=== PATIENT | female | born 1945 | race Caucasian/White ===

== ENCOUNTER → 2021-03-22 | Outpatient (CLI) | payer OTHER ==
[~2021-03-22] MED LIST: BUSPIRONE HCL15 MG PO; LIPITOR 10 MG10 M1 PO; OMEPRAZOLE 20 M20 M1 PO
== END ==
LOC: LAB 07:28
PROVIDERS: ATTEND Student in an Organized Health Care Education/Training Program
DX: Z01.812 Encounter for preprocedural laboratory examination (principal); Z20.822 Contact with and (suspected) exposure to COVID-19

== ENCOUNTER → 2021-03-24 | Outpatient (CLI) | payer OTHER ==
[~2021-03-24] VITALS: Ht 157.5 cm; Wt 72.1 kg
--- NOTE | 2021-03-24 16:10 | P ---
[facility] [place] [address] [place] [address] PROCEDURE REPORT Name: LORRAINE MARTIN Room #: REG LEBRON David#: [id number] Admission: 03/24/21 Attend Phys: Uriah Skinner Discharge: Date of : 49 Report #: [id number] THIS REPORT FOR: cc: GLORIA KING Physician not on staff Uriah Lea MD ~ DATE OF SERVICE: 03/24/2021 PROCEDURE PERFORMED: Upper endoscopy with biopsies. HISTORY OF PRESENT ILLNESS: The patient is a 75-year-old female with a history of gastroesophageal reflux disease and Avila's esophagus. Last upper endoscopy was approximately 5 years ago. She denies any heartburn or dysphagia. Plan is for EGD and colonoscopy today. She is on daily PPI therapy. DESCRIPTION OF PROCEDURE: The risks and benefits of the procedure were explained to the patient, those risks including but not limited to bleeding, perforation and the risk of sedation. She understood these risks and gave informed consent. Sedation was given using propofol per anesthesia. Next, using a standard Olympus upper endoscope, the scope was placed in the patient's mouth and advanced under direct vision through the esophagus, stomach and into the second portion of the duodenum. The larynx was normal in appearance. The upper and mid esophagus were normal. In the distal esophagus, a short 4 cm segment Avila's was noted. No evidence of esophagitis. Random biopsies were obtained of the Avila's esophagus. Upon entering the stomach, a small hiatal hernia was noted. In the stomach, multiple gastric polyps were noted. Several biopsies were obtained. The pylorus was normal and patent. The duodenal bulb, first and second portion were all normal. The scope was then withdrawn and the procedure terminated. The patient tolerated the procedure well. IMPRESSION: 1. Short segment Avila's esophagus. 2. Small hiatal hernia. 3. Gastric polyps. RECOMMENDATIONS: 1. Await biopsy results. 2. Continue daily PPI therapy. 3. We will proceed with colonoscopy next today. Thank you for allowing me to participate in her care. <ELECTRONICALLY SIGNED> By: Uriah Lea MD 03/24/21 1610 [id number] 1408 Uriah Lea MD /nt
--- NOTE | 2021-03-25 16:41 | P ---
[facility] [place] [address] PROCEDURE REPORT Name: LORRAINE MARTIN Room #: REG [place]OR[place] Daniel.#: [id number] Admission: 03/24/21 Attend Phys: Uriah Skinner Discharge: Date of : 49 Report #: [id number] THIS REPORT FOR: cc: GLORIA KING Physician not on staff Uriah Lea MD ~ cc: Gloria King M.D. DATE OF SERVICE: 03/24/2021 PROCEDURE PERFORMED: Colonoscopy with biopsies. HISTORY OF PRESENT ILLNESS: The patient is a 75-year-old female with a history of colon polyps, last colonoscopy 5 years ago. She denies any symptoms. She does have a family history of colon cancer in her father. DESCRIPTION OF PROCEDURE: The risks and benefits of the procedure were explained to the patient, those risks including but not limited to bleeding, perforation and the risk of sedation. She understood these risks and gave informed consent. Sedation was given using propofol per anesthesia. Next, a digital rectal exam was initially performed, which was normal. Next, using a standard Olympus colonoscope, the scope was placed in the patient's anus and advanced under direct vision to the cecum. The overall prep was good. The cecum and ileocecal valve were normal in appearance. The ascending colon was normal. In the transverse colon, a 4 mm sessile polyp was noted. This was removed with cold forceps, otherwise normal. The descending colon was normal. Multiple diverticula were noted in the sigmoid colon. No evidence of inflammation, otherwise normal. The rectal mucosa was normal. On retroflexion, no abnormalities were seen. The scope was then withdrawn and the procedure terminated. The patient tolerated the procedure well. IMPRESSION: 1. Small colonic polyp. 2. Sigmoid diverticulosis. 3. Otherwise, normal colonoscopy. RECOMMENDATIONS: 1. Await biopsy results. 2. Repeat colonoscopy in 5 years. Thank you for allowing me to participate in her care. <ELECTRONICALLY SIGNED> By: Uriah Lea MD 03/25/21 1641 1029 1838 Uriah Lea MD /nt
--- NOTE | 2021-03-26 16:06 | PATH ---
[facility] [address] [place] [address] PATHOLOGY RPT PROCEDURE Name: MARIOCAMI Room #: REG LEBRON [place].Sarah.#: [id number] Admission: 03/24/21 Date of : 49 Discharge: Report #: [id number] Path Case #: [id number] [facility] Accession Number: [id number] . 01 Material submitted: . PART A: gastrointestinal site - GASTRIC POLYPS BIOSPY PART B: esophagus - DISTAL ESOPHAGUS BIOPSY. Modifiers: distal PART C: colon - TRANSVERSE COLON POLYP. Modifiers: transverse . 01 Clinical history: . ESOPHAGOGASTRODUODENOSCOPY/COLONOSCOPY HX OF BIRD'S ESOPHAGUS, FM HX COLON CA, HX OF POLYPS HIATAL HERNIA, DIVERTICULOSIS . 02 Diagnosis: A. Polyps, gastric polyps, endoscopic biopsy: - Fundic gland polyps. - Negative for dysplasia, intestinal metaplasia or atrophy. - Negative for Helicobacter pylori (properly controlled immunohistochemical stain performed). . B. Gastric-type mucosa, distal esophagus, endoscopic biopsy: - Specialized columnar epithelium with intestinal metaplasia, consistent with Bird's metaplasia, see comment. - Negative for dysplasia. . C. Polyp, transverse colon polyp, endoscopic biopsy: - Tubular adenoma. - Negative for high grade dysplasia. (IUV/db; 03/26/2021) LBQ 03/26/2021 1324 Local . 02 Electronically signed: . Dayanara Banegas MD, Pathologist NPI- [id number] . 01 Gross description: . A. The specimen is received in formalin, labeled "Cami Reed, gastric polyps". Received are 2 segments of pale winters tissue ranging in size from 0.3 to 0.4 cm in maximum dimensions. The specimen is submitted entirely in cassette A1. . B. The specimen is received in formalin, labeled "Cami Reed, distal esophagus BX". Received are 3 segments of pale winters tissue ranging in size from 0.4 to 0.5 cm in maximum dimensions. The specimen is submitted entirely in cassette B1[place] [address] PATHOLOGY RPT PROCEDURE Name: CAMI REED Room #: REG [facility] David#: [id number] Admission: 03/24/21 Date of : 49 Discharge: Report #: [id number] Path Case #: [id number] C. The specimen is received in formalin, labeled "Cami Reed, transverse colon polyp". Received is a segment of pale winters tissue measuring 0.3 cm in maximum dimensions. The specimen is submitted entirely in cassette C1.([facility]; 03/25/2021) [facility] 03/25/2021 1540 Local . 02 Pathologist provided ICD-10: K31.7, K22.70, D12.3 . 02 CPT . 400820, 731677, 288920, [id number] Specimen Comment: A courtesy copy of this report has been sent to [phone], [phone] Specimen Comment: 1987 Specimen Comment: Report sent to / DR KING Performed at: [address] [facility], [place] [id number] MD Spencer Simon MD Phone: [phone] Performed at: [address] [id number] MD Dayanara Banegas MD Phone: [phone]
== END | disposition home or self-care (01) ==
LOC: GI 08:37
PROVIDERS: ATTEND Specialist
DX: Z12.11 Encounter for screening for malignant neoplasm of colon (principal); Z80.0 Family history of malignant neoplasm of digestive organs; Z86.010 Personal history of colon polyps; D12.3 Benign neoplasm of transverse colon; K57.30 Diverticulosis of large intestine without perforation or abscess without bleeding; K21.9 Gastro-esophageal reflux disease without esophagitis; K22.70 Barrett's esophagus without dysplasia; K31.7 Polyp of stomach and duodenum; K44.9 Diaphragmatic hernia without obstruction or gangrene; E78.00 Pure hypercholesterolemia, unspecified; F41.9 Anxiety disorder, unspecified; H40.9 Unspecified glaucoma; Z98.890 Other specified postprocedural states; Z79.899 Other long term (current) drug therapy; Z85.42 Personal history of malignant neoplasm of other parts of uterus; Z90.710 Acquired absence of both cervix and uterus; Z96.653 Presence of artificial knee joint, bilateral; Z98.41 Cataract extraction status, right eye; Z98.42 Cataract extraction status, left eye
CPT/HCPCS: 62900